=== PATIENT | male | born 1950 | race Caucasian/White ===

== ENCOUNTER 2017-11-29 16:01 | Outpatient (CLI) | payer MEDICARE, BC | END 2017-11-29 16:02 | disposition home or self-care (01) | LOC: BICRAD 16:01 | PROVIDERS: ATTEND Family Medicine | DX: J45.909 Unspecified asthma, uncomplicated (principal) | CPT/HCPCS: 71046 ==

== ENCOUNTER 2018-09-10 07:44 | Outpatient (CLI) | payer MEDICARE, BC ==
--- NOTE | 2018-09-10 09:18 | CT ---
LOW DOSE CT CHEST WITHOUT CONTRAST: DATE: 09/10/2018. PROVIDED CLINICAL HISTORY: Screening, history of smoking. FINDINGS: No comparisons. The heart, pericardium, and great vessels are suboptimally evaluated in the absence of IV contrast ma terial. Vascular calcification including coronary calcium is demonstrated. Left subclavian cardiac pacing device is noted. The heart, pericardium, and great vessels demonstrate an otherwise unremarka ble unenhanced CT appearance. There is no evidence for thoracic lymph node enlargement with limitations due to lack of IV contrast. The lungs are free of significant opacity. Areas of parenchymal scarring are seen within the left lo wer lobe. The airway appears patent and of normal caliber. No pleural fluid or pneumothorax evident. The visualized portions of the upper abdomen demonstrate no acute abnormality. The osseous structure s demonstrate no concerning lytic or blastic lesions. Postoperative changes involving multiple right -sided ribs are demonstrated. Multiple remote healed rib fractures are seen. Compression deformity which appears chronic involves T12 with near-complete loss of vertebral body height. IMPRESSION: 1. Lung RADS category 1 - negative. Annual screening recommended. 2. Chronic findings as above. POS: TPC
== END 2018-09-10 07:45 | disposition home or self-care (01) ==
LOC: CT 07:44
PROVIDERS: ATTEND Family Medicine
DX: F17.211 Nicotine dependence, cigarettes, in remission (principal); Z87.891 Personal history of nicotine dependence
CPT/HCPCS: G0297

== ENCOUNTER 2019-11-24 05:55 | Day surgery (SDC) | payer MEDICARE, BC ==
[2019-11-23 10:50] VITALS: BMI 30.2
[2019-11-24] MEDS ORDERED: PHENYLEPHRINE-NS 100 MCG/ML 10 ML SYRINGE ONE (09:24)
[2019-11-24] MEDS ORDERED: Lidocaine 1% PF 5 ML VIAL ONE (09:24)
[2019-11-24] MEDS ORDERED: PROPOFOL 200 MG/20 ML VIAL ONE (09:24)
--- NOTE | 2019-11-24 10:34 | OP ---
DATE OF PROCEDURE: 11/24/2019 [employer] SURGEON: None. PROCEDURE PERFORMED: Colonoscopy with snare polypectomy. INDICATION: 1. Personal history of colon polyps. 2. Last colonoscopy was 3 years ago, with seven adenomas and tubulovillous adenomas removed at that time. MEDICATIONS: See Anesthesia record. FINDINGS: After discussion of the risks, benefits, and alternatives of the procedure, informed consent was obtained and witnessed. Pre-endoscopic cardiopulmonary examination was satisfactory. Time-out was performed before sedation was achieved. Sedation was achieved with Anesthesia assistance in the endoscopy unit. Digital rectal exam was performed, which demonstrated external hemorrhoids. A Pentax adult colonoscope was inserted into the anus and passed forward to the cecum in the usual fashion. The cecal base was identified by the appendiceal orifice as well as the ileocecal valve. The terminal ileum was intubated and the ileal mucosa appeared normal. The colonoscope was slowly withdrawn in a gradual and circumferential manner with careful examination of the entire colonic mucosa. The quality of the prep was good. In the ascending colon, there are three tiny polyps each measuring 1 to 2 mm in diameter, these were all completely removed with cold snare and retrieved for pathology. In the descending colon, there were two tiny polyps measuring 1 to 2 mm in diameter, these were both completely removed with cold snare and retrieved for pathology. There was diverticulosis throughout the sigmoid colon. Retroflexion in the rectum demonstrates internal hemorrhoids. The remainder of the colon exam was normal. The colonoscope was completely withdrawn and the patient allowed to recover. The patient tolerated the procedure well. There were no immediate postprocedure complications. IMPRESSION: 1. Three tiny ascending colon polyps, completely removed with cold snare and retrieved for pathology. 2. Two tiny descending colon polyps, completely removed with cold snare and retrieved for pathology. 3. Sigmoid diverticulosis. 4. Internal and external hemorrhoids. RECOMMENDATIONS: 1. Follow up pathology results on the colon polyps. 2. Repeat surveillance colonoscopy interval to be determined based on pathology results. Job ID: [id number]
== END 2019-11-24 10:35 | disposition home or self-care (01) ==
LOC: SDC 05:55
PROVIDERS: ATTEND Internal Medicine
PROC: 0DBK8ZX Excision of Ascending Colon, Via Natural or Artificial Opening Endoscopic, Diagnostic (ICD-10-PCS; principal; 2019-11-24)
PROC: 0DBM8ZX Excision of Descending Colon, Via Natural or Artificial Opening Endoscopic, Diagnostic (ICD-10-PCS; 2019-11-24)
DX: Z12.11 Encounter for screening for malignant neoplasm of colon (principal); D12.2 Benign neoplasm of ascending colon; D12.4 Benign neoplasm of descending colon; K57.30 Diverticulosis of large intestine without perforation or abscess without bleeding; K64.4 Residual hemorrhoidal skin tags; K64.8 Other hemorrhoids; M19.90 Unspecified osteoarthritis, unspecified site; I50.9 Heart failure, unspecified; I25.10 Atherosclerotic heart disease of native coronary artery without angina pectoris; K21.9 Gastro-esophageal reflux disease without esophagitis; E78.00 Pure hypercholesterolemia, unspecified; Z86.010 Personal history of colon polyps; Z87.891 Personal history of nicotine dependence; Z79.02 Long term (current) use of antithrombotics/antiplatelets; Z79.82 Long term (current) use of aspirin; Z79.899 Other long term (current) drug therapy; Z95.5 Presence of coronary angioplasty implant and graft; Z95.810 Presence of automatic (implantable) cardiac defibrillator
CPT/HCPCS: 88305; J2704

== ENCOUNTER 2020-05-25 08:30 | Outpatient (CLI) | payer MEDICARE, BC | END 2020-05-25 08:31 | disposition home or self-care (01) | LOC: BICULT 08:30 | PROVIDERS: ATTEND Family Medicine | DX: R05 Cough (principal); J92.9 Pleural plaque without asbestos; R16.0 Hepatomegaly, not elsewhere classified; R39.9 Unspecified symptoms and signs involving the genitourinary system; K80.20 Calculus of gallbladder without cholecystitis without obstruction; K76.0 Fatty (change of) liver, not elsewhere classified | CPT/HCPCS: 71046; 76856; 93975 ==

== ENCOUNTER 2020-08-18 14:49 | Outpatient (CLI) | payer MEDICARE, BC | END 2020-08-18 14:50 | disposition home or self-care (01) | LOC: BICCT 14:49 | PROVIDERS: ATTEND Family Medicine | DX: R91.1 Solitary pulmonary nodule (principal) | CPT/HCPCS: 71260 ==

== ENCOUNTER 2020-11-01 13:54 | Outpatient (CLI) | payer MEDICARE, BC | END 2020-11-01 13:55 | disposition home or self-care (01) | LOC: TBSIIMAG 13:54 | PROVIDERS: ATTEND Neurological Surgery | DX: M48.56XA Collapsed vertebra, not elsewhere classified, lumbar region, initial encounter for fracture (principal); M48.54XA Collapsed vertebra, not elsewhere classified, thoracic region, initial encounter for fracture | CPT/HCPCS: 72100 ==

== ENCOUNTER 2021-01-02 11:17 | Outpatient (CLI) | payer MEDICARE, BC | END 2021-01-02 11:18 | disposition home or self-care (01) | LOC: BICRAD 11:17 | PROVIDERS: ATTEND Neurological Surgery | DX: S22.008A Other fracture of unspecified thoracic vertebra, initial encounter for closed fracture (principal); M54.50 Low back pain, unspecified; M47.816 Spondylosis without myelopathy or radiculopathy, lumbar region | CPT/HCPCS: 72100 ==

== ENCOUNTER 2021-04-03 09:35 | Outpatient (CLI) | payer MEDICARE, BC | END 2021-04-03 09:36 | disposition home or self-care (01) | LOC: CT 09:35 | PROVIDERS: ATTEND Family Medicine | DX: M47.817 Spondylosis without myelopathy or radiculopathy, lumbosacral region (principal); M12.551 Traumatic arthropathy, right hip; M47.816 Spondylosis without myelopathy or radiculopathy, lumbar region | CPT/HCPCS: 72131; 72192 ==

== ENCOUNTER 2021-07-26 13:23 | Outpatient (CLI) | payer MEDICARE, BC | END 2021-07-26 13:24 | disposition home or self-care (01) | LOC: MRI 13:23 | PROVIDERS: ATTEND Orthopaedic Surgery | DX: M47.816 Spondylosis without myelopathy or radiculopathy, lumbar region (principal); M48.061 Spinal stenosis, lumbar region without neurogenic claudication; M48.07 Spinal stenosis, lumbosacral region | CPT/HCPCS: 72148 ==

== ENCOUNTER 2021-08-31 15:08 | Outpatient (CLI) | payer MEDICARE, BC | END 2021-08-31 15:09 | disposition home or self-care (01) | LOC: BICRAD 15:08 | PROVIDERS: ATTEND Family Medicine | DX: M25.561 Pain in right knee (principal); M25.571 Pain in right ankle and joints of right foot; M25.551 Pain in right hip; M25.552 Pain in left hip; M25.562 Pain in left knee; M16.0 Bilateral primary osteoarthritis of hip; M17.0 Bilateral primary osteoarthritis of knee; M79.89 Other specified soft tissue disorders ==

== ENCOUNTER 2021-09-13 07:52 | Outpatient (CLI) | payer MEDICARE, BC | END 2021-09-13 07:53 | disposition home or self-care (01) | LOC: BICMAMMO 07:52 | PROVIDERS: ATTEND Family Medicine | DX: M80.00XA Age-related osteoporosis with current pathological fracture, unspecified site, initial encounter for fracture (principal); M85.88 Other specified disorders of bone density and structure, other site | CPT/HCPCS: 77080 ==

== ENCOUNTER 2022-03-08 10:08 | Outpatient (CLI) | payer MEDICARE, BC | END 2022-03-08 10:09 | disposition home or self-care (01) | LOC: BICRAD 10:08 | PROVIDERS: ATTEND Physician Assistant Medical | DX: R19.4 Change in bowel habit (principal); R15.9 Full incontinence of feces | CPT/HCPCS: 74018 ==

== ENCOUNTER 2022-04-20 08:41 | Outpatient (CLI) | payer MEDICARE, BC | END 2022-04-20 08:42 | disposition home or self-care (01) | LOC: MRI 08:41 | PROVIDERS: ATTEND Specialist | DX: M51.16 Intervertebral disc disorders with radiculopathy, lumbar region (principal); M47.26 Other spondylosis with radiculopathy, lumbar region; M47.817 Spondylosis without myelopathy or radiculopathy, lumbosacral region; M47.815 Spondylosis without myelopathy or radiculopathy, thoracolumbar region; Z98.890 Other specified postprocedural states; Z87.81 Personal history of (healed) traumatic fracture | CPT/HCPCS: 72148 ==

== ENCOUNTER 2022-10-05 11:30 | Inpatient (IN) | payer OTHER, MEDICARE, BC ==
[2022-10-05] MEDS ORDERED: Morphine 4 MG/ML VIAL ONE ×2 (12:29→13:49)
[2022-10-05 12:53] LABS: #Eosinphils 0.1 thou/uL (0.0-0.7); #Monocytes 0.2 thou/uL (0.11-0.59); #Neutrophils 3.5 thou/uL (1.40-6.50); %Basophils 0.2 % (0.0-1.0); %Eosinophils 1.4 % (0.0-10.0); %Lymphocytes 21.9 % (21.0-51.0); %Monocytes 3.7 % (0.0-10.0); %Neutrophils 72.4 % (42.0-75.0); Hematocrit 31.8 % (42.0-52.0); Hemoglobin 10.4 g/dL (14.0-18.0); Mean Corpuscular HGB CONC 32.7 g/dL (32.0-36.0); Mean Corpuscular Hemoglobin 32.8 pg (27.0-31.0); Mean Corpuscular Volume 100.3 fl (78.0-98.0); Mean Platelet Volume 10.6 fL (7.4-10.4); Platelet Count 155 10x3/uL (130-400); RBC Distribution Width 12.2 % (11.5-14.5); Red Blood Cell (RBC) Count 3.17 mill/uL (4.70-6.10); White Blood Cell (WBC) Count 4.9 10x3/uL (4.8-10.8)
[2022-10-05] MEDS ORDERED: Glucagon 1 MG/ML KIT IM PRN (13:10)
[2022-10-05] MEDS ORDERED: Ipratropium/Albuterol 3 ML NEB NEB PRN (13:10)
[2022-10-05] MEDS ORDERED: Dextrose 5% in Water 1,000 ML IV PRN (13:10)
[2022-10-05] MEDS ORDERED: Ondansetron ODT 4 MG TAB PO PRN (13:10)
[2022-10-05] MEDS ORDERED: Dextrose 50% Abboject 50 ML SYRINGE SLOW IVP PRN (13:10)
[2022-10-05] MEDS ORDERED: traMADol HCl 50 MG TAB ONE (13:46)
[2022-10-05 13:56] LABS: Albumin 4.1 g/dL (3.4-4.8)
[2022-10-05 13:58] LABS: Chloride 95 mmol/L (98-107); Potassium 4.2 mmol/L (3.5-5.1); Sodium 136 mmol/L (136-145)
[2022-10-05 13:59] LABS: Globulin 2.3 g/dL (2.4-3.5); Glucose 136 mg/dL (83-110); Protein, Total 6.4 g/dL (5.8-8.1)
[2022-10-05 14:00] LABS: Anion Gap 11 mmol/L (10-20); Carbon Dioxide 34 mmol/L (23-31)
[2022-10-05 14:01] LABS: Bilirubin, Total 0.4 mg/dL (0.2-1.2)
[2022-10-05 14:02] LABS: Alkaline Phosphatase 79 U/L (40-110); Calc. Creatinine Clearance 0 mL/min (70-130); Estimated GFR 93
[2022-10-05 14:03] LABS: BUN (Urea Nitrogen) 13 mg/dL (8.4-25.7)
[2022-10-05 14:04] LABS: AST (SGOT) 16 U/L (5-34); Magnesium 1.9 mg/dL (1.6-2.6); Phosphorus 3.2 mg/dL (2.3-4.7)
[2022-10-05 14:05] LABS: ALT (SGPT) 11 U/L (8-55)
[2022-10-05 14:42] VITALS: BMI 35.6
[2022-10-05 14:51] LABS: PTT 24.5 sec (22.9-36.1)
[2022-10-05] MEDS: Gabapentin 100 MG CAP PO SCH ×2 (15:22→21:13)
[2022-10-05] MEDS: Morphine 2 MG/ML VIAL SLOW IVP PRN ×2 (15:23→19:41)
[2022-10-05] MEDS: Acetaminophen 500 MG TAB PO SCH ×2 (15:24→19:46)
[2022-10-05] MEDS: traMADol HCl 50 MG TAB PO SCH ×2 (17:59→23:58)
[2022-10-05] MEDS: Famotidine 20 MG TAB PO SCH (21:13)
[2022-10-05] MEDS: traMADol HCl 50 MG TAB PO PRN (21:13)
[2022-10-06] MEDS: Acetaminophen 500 MG TAB PO SCH ×3 (01:21→08:25)
[2022-10-06] MEDS: Cyclobenzaprine 10 MG TAB PO PRN ×2 (01:22→08:24)
[2022-10-06] MEDS: Morphine 2 MG/ML VIAL SLOW IVP PRN ×3 (03:44→12:57)
[2022-10-06 05:40] LABS: #Eosinphils 0.1 thou/uL (0.0-0.7); #Monocytes 0.4 thou/uL (0.11-0.59); #Neutrophils 3.4 thou/uL (1.40-6.50); %Basophils 0.4 % (0.0-1.0); %Eosinophils 1.6 % (0.0-10.0); %Lymphocytes 22.8 % (21.0-51.0); %Monocytes 7.5 % (0.0-10.0); %Neutrophils 67.5 % (42.0-75.0); Hematocrit 31.3 % (42.0-52.0); Hemoglobin 10.1 g/dL (14.0-18.0); Mean Corpuscular HGB CONC 32.3 g/dL (32.0-36.0); Mean Corpuscular Hemoglobin 33.3 pg (27.0-31.0); Mean Corpuscular Volume 103.3 fl (78.0-98.0); Mean Platelet Volume 10.4 fL (7.4-10.4); Platelet Count 136 10x3/uL (130-400); RBC Distribution Width 12.5 % (11.5-14.5); Red Blood Cell (RBC) Count 3.03 mill/uL (4.70-6.10)
[2022-10-06] MEDS: traMADol HCl 50 MG TAB PO SCH ×3 (06:06→18:18)
[2022-10-06 06:34] LABS: Phosphorus 3.5 mg/dL (2.3-4.7)
[2022-10-06 06:36] LABS: Anion Gap 13 mmol/L (10-20); BUN (Urea Nitrogen) 16 mg/dL (8.4-25.7); Calc. Creatinine Clearance 122 mL/min (70-130); Calcium 9.9 mg/dL (7.8-10.44); Carbon Dioxide 32 mmol/L (23-31); Chloride 95 mmol/L (98-107); Estimated GFR 91; Glucose 126 mg/dL (83-110); Magnesium 1.9 mg/dL (1.6-2.6); Potassium 4.6 mmol/L (3.5-5.1); Sodium 135 mmol/L (136-145)
[2022-10-06] MEDS ORDERED: Acetaminophen/Codeine 30-300mg Tablet PO PRN ×2 (08:22)
[2022-10-06] MEDS: Gabapentin 100 MG CAP PO SCH ×3 (08:24→20:37)
[2022-10-06] MEDS: traMADol HCl 50 MG TAB PO PRN (08:24)
[2022-10-06] MEDS: Famotidine 20 MG TAB PO SCH ×2 (08:24→20:37)
[2022-10-06] MEDS ORDERED: CEFAZOLIN 2 GM in Sodium Chloride 0.9% 100 ML IVPB SCH (08:45)
[2022-10-06] MEDS ORDERED: Magnesium 2 GM/50 ML(in water) 2 GM in Premix Bag 1 BAG IVPB SCH (08:45)
[2022-10-06] MEDS: Bupropion 100 MG SR TAB PO SCH (09:00)
[2022-10-06] MEDS: Escitalopram Oxalate 20 mg Tablet PO SCH (09:45)
[2022-10-06] MEDS: Sacubitril 49 MG/Valsartan 51 MG TABLET PO SCH ×2 (09:45→20:36)
[2022-10-06] MEDS: Folic Acid 1 MG TAB PO SCH (09:45)
[2022-10-06] MEDS: tiZANidine HCl 4 MG TAB PO SCH ×4 (09:45→20:36)
[2022-10-06] MEDS: Cyanocobalamin (Vitamin B-12) 1,000 MCG TAB PO SCH (09:46)
[2022-10-06] MEDS: Acetaminophen/Codeine 30-300mg Tablet PO SCH (20:36)
[2022-10-06] MEDS: Atorvastatin Calcium 20 MG TAB PO SCH (20:37)
[2022-10-06] MEDS ORDERED: Simvastatin 40 MG TAB PO SCH (21:00)
[2022-10-07] MEDS: Acetaminophen/Codeine 30-300mg Tablet PO SCH ×4 (01:20→20:48)
[2022-10-07] MEDS: tiZANidine HCl 4 MG TAB PO SCH ×6 (01:20→20:55)
[2022-10-07] MEDS: Acetaminophen/Codeine 30-300mg Tablet PO PRN ×3 (01:23→17:57)
[2022-10-07 05:58] LABS: #Eosinphils 0.1 thou/uL (0.0-0.7); #Monocytes 0.4 thou/uL (0.11-0.59); #Neutrophils 2.9 thou/uL (1.40-6.50); %Basophils 0.4 % (0.0-1.0); %Eosinophils 1.5 % (0.0-10.0); %Lymphocytes 27.6 % (21.0-51.0); %Monocytes 8.7 % (0.0-10.0); %Neutrophils 61.6 % (42.0-75.0); Hemoglobin 9.2 g/dL (14.0-18.0); Mean Corpuscular HGB CONC 32.9 g/dL (32.0-36.0); Mean Corpuscular Hemoglobin 33.2 pg (27.0-31.0); Mean Corpuscular Volume 101.1 fl (78.0-98.0); Mean Platelet Volume 10.6 fL (7.4-10.4); Platelet Count 122 10x3/uL (130-400); RBC Distribution Width 12.3 % (11.5-14.5); Red Blood Cell (RBC) Count 2.77 mill/uL (4.70-6.10); White Blood Cell (WBC) Count 4.7 10x3/uL (4.8-10.8)
[2022-10-07 06:26] LABS: Anion Gap 11 mmol/L (10-20); BUN (Urea Nitrogen) 11 mg/dL (8.4-25.7); Calc. Creatinine Clearance 150 mL/min (70-130); Calcium 9.3 mg/dL (7.8-10.44); Carbon Dioxide 31 mmol/L (23-31); Chloride 96 mmol/L (98-107); Estimated GFR 97; Glucose 114 mg/dL (83-110); Magnesium 2.1 mg/dL (1.6-2.6); Phosphorus 2.4 mg/dL (2.3-4.7); Potassium 4.3 mmol/L (3.5-5.1); Sodium 134 mmol/L (136-145)
[2022-10-07] MEDS ORDERED: Dexmedetomidine 200 MCG/2 ML VIAL ONE (07:41)
[2022-10-07] MEDS ORDERED: fentaNYL PF 100 MCG/2 ML SYRINGE ONE (07:41)
[2022-10-07] MEDS ORDERED: Sodium Chloride 0.9% 0 ML ONE (07:50)
[2022-10-07] MEDS ORDERED: CEFAZOLIN 2 GM VIAL ONE (07:50)
[2022-10-07] MEDS ORDERED: Lidocaine 1% MPF 2 ML VIAL ONE (07:59)
[2022-10-07] MEDS ORDERED: Ondansetron HCl/PF 4 MG/2 ML Vial IVP PRN (08:21)
[2022-10-07] MEDS ORDERED: Promethazine HCl 25 MG/ML VIAL IM PRN (08:21)
[2022-10-07] MEDS ORDERED: PROPOFOL 200 MG/20 ML VIAL ONE (08:43)
[2022-10-07] MEDS ORDERED: Ondansetron PF 4 MG/2 ML Vial ONE (08:43)
[2022-10-07] MEDS ORDERED: PHENYLEPHRINE-NS 100 MCG/ML 10 ML SYRINGE ONE (08:43)
[2022-10-07] MEDS: Gabapentin 100 MG CAP PO SCH ×3 (09:00→20:49)
[2022-10-07] MEDS: Carvedilol 25 MG TAB PO SCH ×2 (09:00→20:46)
[2022-10-07] MEDS ORDERED: fentaNYL 50 mcg/mL 1 mL Vial ONE (10:23)
[2022-10-07] MEDS: Sacubitril 49 MG/Valsartan 51 MG TABLET PO SCH ×2 (13:05→20:48)
[2022-10-07] MEDS: Cyanocobalamin (Vitamin B-12) 1,000 MCG TAB PO SCH (13:05)
[2022-10-07] MEDS: Famotidine 20 MG TAB PO SCH ×2 (13:05→20:50)
[2022-10-07] MEDS: Folic Acid 1 MG TAB PO SCH (13:05)
[2022-10-07] MEDS: Escitalopram Oxalate 20 mg Tablet PO SCH (13:06)
[2022-10-07] MEDS: Bupropion 100 MG SR TAB PO SCH (13:08)
[2022-10-07] MEDS: Morphine 2 MG/ML VIAL SLOW IVP PRN (18:02)
[2022-10-07] MEDS: CEFAZOLIN 2 GM in Sodium Chloride 0.9% 100 ML IVPB SCH (18:13)
[2022-10-07] MEDS: Atorvastatin Calcium 20 MG TAB PO SCH (20:49)
[2022-10-08] MEDS: tiZANidine HCl 4 MG TAB PO SCH ×6 (00:06→20:29)
[2022-10-08] MEDS: CEFAZOLIN 2 GM in Sodium Chloride 0.9% 100 ML IVPB SCH (00:07)
[2022-10-08] MEDS: Acetaminophen/Codeine 30-300mg Tablet PO SCH ×4 (02:39→20:28)
[2022-10-08 08:02] LABS: #Monocytes 0.4 thou/uL (0.11-0.59); #Neutrophils 3.9 thou/uL (1.40-6.50); %Basophils 0.2 % (0.0-1.0); %Eosinophils 0.7 % (0.0-10.0); %Lymphocytes 20.1 % (21.0-51.0); %Monocytes 7.6 % (0.0-10.0); %Neutrophils 70.9 % (42.0-75.0); Hematocrit 24.7 % (42.0-52.0); Hemoglobin 7.8 g/dL (14.0-18.0); Mean Corpuscular HGB CONC 31.6 g/dL (32.0-36.0); Mean Corpuscular Hemoglobin 33.6 pg (27.0-31.0); Mean Corpuscular Volume 106.5 fl (78.0-98.0); Mean Platelet Volume 10.2 fL (7.4-10.4); Platelet Count 137 10x3/uL (130-400); RBC Distribution Width 12.5 % (11.5-14.5); Red Blood Cell (RBC) Count 2.32 mill/uL (4.70-6.10); White Blood Cell (WBC) Count 5.5 10x3/uL (4.8-10.8)
[2022-10-08 08:54] LABS: Anion Gap 13 mmol/L (10-20); BUN (Urea Nitrogen) 20 mg/dL (8.4-25.7); Calc. Creatinine Clearance 53 mL/min (70-130); Calcium 8.7 mg/dL (7.8-10.44); Carbon Dioxide 27 mmol/L (23-31); Chloride 96 mmol/L (98-107); Estimated GFR 35; Glucose 144 mg/dL (83-110); Magnesium 2.1 mg/dL (1.6-2.6); Potassium 4.7 mmol/L (3.5-5.1); Sodium 131 mmol/L (136-145)
[2022-10-08] MEDS: Folic Acid 1 MG TAB PO SCH (10:51)
[2022-10-08] MEDS: Cyanocobalamin (Vitamin B-12) 1,000 MCG TAB PO SCH (10:52)
[2022-10-08] MEDS: Famotidine 20 MG TAB PO SCH ×2 (10:52→20:28)
[2022-10-08] MEDS: Gabapentin 100 MG CAP PO SCH ×3 (10:52→20:28)
[2022-10-08] MEDS: Escitalopram Oxalate 20 mg Tablet PO SCH (10:53)
[2022-10-08] MEDS: Bupropion 100 MG SR TAB PO SCH (11:51)
[2022-10-08] MEDS: Carvedilol 25 MG TAB PO SCH ×2 (11:54→20:29)
[2022-10-08] MEDS: Sacubitril 49 MG/Valsartan 51 MG TABLET PO SCH ×2 (11:54→20:29)
[2022-10-08] MEDS: Atorvastatin Calcium 20 MG TAB PO SCH (20:28)
[2022-10-08] MEDS ORDERED: Sodium Chloride 0.9% 1,000 ML IV SCH (20:45)
[2022-10-08] MEDS: Sodium Chloride 0.9% 1,000 ML IV SCH (21:22)
[2022-10-08 23:32] LABS: #Eosinphils 0.1 thou/uL (0.0-0.7); #Monocytes 0.5 thou/uL (0.11-0.59); #Neutrophils 4.4 thou/uL (1.40-6.50); %Basophils 0.1 % (0.0-1.0); %Eosinophils 0.9 % (0.0-10.0); %Lymphocytes 26.8 % (21.0-51.0); %Monocytes 7.6 % (0.0-10.0); %Neutrophils 64.3 % (42.0-75.0); Hemoglobin 8.7 g/dL (14.0-18.0); Mean Corpuscular HGB CONC 32.2 g/dL (32.0-36.0); Mean Corpuscular Hemoglobin 33.3 pg (27.0-31.0); Mean Corpuscular Volume 103.4 fl (78.0-98.0); Mean Platelet Volume 10.8 fL (7.4-10.4); Platelet Count 143 10x3/uL (130-400); RBC Distribution Width 14.3 % (11.5-14.5); Red Blood Cell (RBC) Count 2.61 mill/uL (4.70-6.10); White Blood Cell (WBC) Count 6.9 10x3/uL (4.8-10.8)
[2022-10-08] MEDS ORDERED: Albumin 25% 25 GM/100 ML BOT IVPB SCH (23:45)
[2022-10-08 23:56] LABS: ALT (SGPT) 27 U/L (8-55); AST (SGOT) 70 U/L (5-34); Albumin 3.4 g/dL (3.4-4.8); Alkaline Phosphatase 94 U/L (40-110); Anion Gap 15 mmol/L (10-20); BUN (Urea Nitrogen) 29 mg/dL (8.4-25.7); Bilirubin, Total 0.9 mg/dL (0.2-1.2); Calc. Creatinine Clearance 43 mL/min (70-130); Calcium 8.8 mg/dL (7.8-10.44); Carbon Dioxide 26 mmol/L (23-31); Chloride 94 mmol/L (98-107); Estimated GFR 27; Globulin 2.7 g/dL (2.4-3.5); Glucose 142 mg/dL (83-110); Potassium 4.8 mmol/L (3.5-5.1); Protein, Total 6.1 g/dL (5.8-8.1); Sodium 130 mmol/L (136-145)
[2022-10-09] MEDS ORDERED: Sodium Chloride 0.9% 500 ML IV SCH (00:15)
[2022-10-09] MEDS: tiZANidine HCl 4 MG TAB PO SCH ×6 (00:24→20:39)
[2022-10-09] MEDS: Acetaminophen/Codeine 30-300mg Tablet PO SCH ×4 (01:30→20:39)
[2022-10-09] MEDS: Ondansetron PF 4 MG/2 ML Vial IVP PRN ×3 (04:34→20:38)
[2022-10-09 05:59] LABS: #Monocytes 0.5 thou/uL (0.11-0.59); %Basophils 0.2 % (0.0-1.0); %Eosinophils 0.7 % (0.0-10.0); %Lymphocytes 22.4 % (21.0-51.0); %Monocytes 7.7 % (0.0-10.0); %Neutrophils 68.7 % (42.0-75.0); Hematocrit 26.1 % (42.0-52.0); Hemoglobin 8.4 g/dL (14.0-18.0); Mean Corpuscular HGB CONC 32.2 g/dL (32.0-36.0); Mean Corpuscular Hemoglobin 33.1 pg (27.0-31.0); Mean Corpuscular Volume 102.8 fl (78.0-98.0); Mean Platelet Volume 10.7 fL (7.4-10.4); Platelet Count 145 10x3/uL (130-400); RBC Distribution Width 14.2 % (11.5-14.5); Red Blood Cell (RBC) Count 2.54 mill/uL (4.70-6.10); White Blood Cell (WBC) Count 5.9 10x3/uL (4.8-10.8)
[2022-10-09 06:19] LABS: Anion Gap 16 mmol/L (10-20); BUN (Urea Nitrogen) 33 mg/dL (8.4-25.7); Calc. Creatinine Clearance 46 mL/min (70-130); Calcium 8.8 mg/dL (7.8-10.44); Carbon Dioxide 24 mmol/L (23-31); Chloride 98 mmol/L (98-107); Estimated GFR 29; Glucose 177 mg/dL (83-110); Potassium 4.7 mmol/L (3.5-5.1); Sodium 133 mmol/L (136-145)
[2022-10-09] MEDS: Gabapentin 100 MG CAP PO SCH ×2 (08:22→15:21)
[2022-10-09] MEDS: Cyanocobalamin (Vitamin B-12) 1,000 MCG TAB PO SCH (08:22)
[2022-10-09] MEDS: Famotidine 20 MG TAB PO SCH (08:22)
[2022-10-09] MEDS: Bupropion 100 MG SR TAB PO SCH (08:22)
[2022-10-09] MEDS: Escitalopram Oxalate 20 mg Tablet PO SCH (08:22)
[2022-10-09] MEDS ORDERED: Aspirin 81 mg Enteric Coated Tablet PO SCH (09:00)
[2022-10-09] MEDS: Scopolamine 1.5 mg/72 hour Patch TD SCH (10:53)
[2022-10-09] MEDS: Sodium Chloride 0.9% 1,000 ML IV SCH (16:44)
[2022-10-09] MEDS: Atorvastatin Calcium 20 MG TAB PO SCH (20:39)
[2022-10-09] MEDS: Heparin 5,000 UNITS/ML VIAL SC SCH (21:24)
[2022-10-09] MEDS: Melatonin 3 MG TAB PO SCH (21:24)
[2022-10-10] MEDS: tiZANidine HCl 4 MG TAB PO SCH ×6 (00:04→20:34)
[2022-10-10] MEDS: Acetaminophen/Codeine 30-300mg Tablet PO SCH ×3 (01:32→12:20)
[2022-10-10 05:54] LABS: #Monocytes 0.4 thou/uL (0.11-0.59); %Basophils 0.2 % (0.0-1.0); %Eosinophils 0.2 % (0.0-10.0); %Lymphocytes 15.7 % (21.0-51.0); %Neutrophils 76.5 % (42.0-75.0); Hematocrit 26.3 % (42.0-52.0); Hemoglobin 8.5 g/dL (14.0-18.0); Mean Corpuscular HGB CONC 32.3 g/dL (32.0-36.0); Mean Corpuscular Hemoglobin 33.5 pg (27.0-31.0); Mean Corpuscular Volume 103.5 fl (78.0-98.0); Mean Platelet Volume 10.5 fL (7.4-10.4); Platelet Count 165 10x3/uL (130-400); Red Blood Cell (RBC) Count 2.54 mill/uL (4.70-6.10); White Blood Cell (WBC) Count 5.3 10x3/uL (4.8-10.8)
[2022-10-10 06:52] LABS: Anion Gap 15 mmol/L (10-20); BUN (Urea Nitrogen) 32 mg/dL (8.4-25.7); Calc. Creatinine Clearance 81 mL/min (70-130); Calcium 9.1 mg/dL (7.8-10.44); Carbon Dioxide 28 mmol/L (23-31); Chloride 97 mmol/L (98-107); Estimated GFR 59; Glucose 151 mg/dL (83-110); Magnesium 2.4 mg/dL (1.6-2.6); Phosphorus 2.3 mg/dL (2.3-4.7); Potassium 4.7 mmol/L (3.5-5.1); Sodium 135 mmol/L (136-145)
[2022-10-10] MEDS: Escitalopram Oxalate 20 mg Tablet PO SCH (08:08)
[2022-10-10] MEDS: Cyanocobalamin (Vitamin B-12) 1,000 MCG TAB PO SCH (08:08)
[2022-10-10] MEDS: Bupropion 100 MG SR TAB PO SCH (08:08)
[2022-10-10] MEDS: Folic Acid 1 MG TAB PO SCH (08:08)
[2022-10-10] MEDS: Heparin 5,000 UNITS/ML VIAL SC SCH ×2 (08:09→20:35)
[2022-10-10] MEDS: Senokot S 8.6-50 MG TAB PO SCH ×2 (08:58→20:34)
[2022-10-10] MEDS: Sacubitril 24MG/Valsartan 26 MG TAB PO SCH ×2 (08:58→20:34)
[2022-10-10] MEDS: Polyethylene Glycol 3350 17 GM Packet PO SCH (08:59)
[2022-10-10] MEDS: Ondansetron PF 4 MG/2 ML Vial IVP PRN (09:00)
[2022-10-10] MEDS ORDERED: Famotidine 20 MG TAB PO SCH ×2 (09:00)
[2022-10-10] MEDS: Sodium Chloride 0.9% 1,000 ML IV SCH (11:04)
[2022-10-10] MEDS: Acetaminophen 325 MG TAB PO SCH (16:08)
[2022-10-10] MEDS ORDERED: Carvedilol 6.25 MG TAB PO SCH (17:00)
[2022-10-10] MEDS ORDERED: HYDROCORTISONE 2.5% TOP PRN (18:48)
[2022-10-10] MEDS ORDERED: IVERMECTIN TOP PRN (18:50)
[2022-10-10] MEDS ORDERED: [UNRECOGNIZED DRUG - OTHER] TOP PRN (18:50)
[2022-10-10] MEDS: Melatonin 3 MG TAB PO SCH (20:34)
[2022-10-10] MEDS: Atorvastatin Calcium 20 MG TAB PO SCH (20:35)
[2022-10-11] MEDS: tiZANidine HCl 4 MG TAB PO SCH ×2 (01:15→06:14)
[2022-10-11] MEDS: Acetaminophen 325 MG TAB PO SCH ×5 (01:15→23:29)
[2022-10-11 06:56] LABS: Anion Gap 12 mmol/L (10-20); BUN (Urea Nitrogen) 32 mg/dL (8.4-25.7); Calc. Creatinine Clearance 109 mL/min (70-130); Carbon Dioxide 36 mmol/L (23-31); Chloride 99 mmol/L (98-107); Estimated GFR 83; Glucose 127 mg/dL (83-110); Potassium 3.9 mmol/L (3.5-5.1); Sodium 143 mmol/L (136-145)
[2022-10-11] MEDS ORDERED: Sodium Chloride 0.9% (PF) 10 ML VIAL FS PRN (08:30)
[2022-10-11] MEDS ORDERED: Pantoprazole 40 MG VIAL IVP SCH (09:00)
[2022-10-11] MEDS: Sacubitril 24MG/Valsartan 26 MG TAB PO SCH ×2 (09:40→20:25)
[2022-10-11] MEDS: tiZANidine HCl 4 MG TAB PO PRN (09:43)
[2022-10-11] MEDS: Carvedilol 6.25 MG TAB PO SCH ×2 (09:43→17:54)
[2022-10-11] MEDS: Senokot S 8.6-50 MG TAB PO SCH ×2 (09:44→20:26)
[2022-10-11] MEDS: Folic Acid 1 MG TAB PO SCH (09:44)
[2022-10-11] MEDS: Pantoprazole 40 MG VIAL IVP SCH (09:44)
[2022-10-11] MEDS: Escitalopram Oxalate 20 mg Tablet PO SCH (09:44)
[2022-10-11] MEDS: Cyanocobalamin (Vitamin B-12) 1,000 MCG TAB PO SCH (09:44)
[2022-10-11] MEDS: Polyethylene Glycol 3350 17 GM Packet PO SCH (09:44)
[2022-10-11] MEDS: Bupropion 100 MG SR TAB PO SCH (09:44)
[2022-10-11] MEDS: Apixaban 5 MG TAB PO SCH ×2 (09:44→20:26)
[2022-10-11] MEDS: Sodium Chloride 0.9% 1,000 ML IV SCH (10:50)
[2022-10-11] MEDS: Melatonin 3 MG TAB PO SCH (20:26)
[2022-10-11] MEDS: Atorvastatin Calcium 20 MG TAB PO SCH (20:26)
[2022-10-12] MEDS: tiZANidine HCl 4 MG TAB PO PRN (01:14)
[2022-10-12] MEDS: Sodium Chloride 0.9% 1,000 ML IV SCH (01:15)
[2022-10-12] MEDS: Acetaminophen 325 MG TAB PO SCH ×4 (05:42→23:06)
[2022-10-12] MEDS: Bupropion 100 MG SR TAB PO SCH (09:04)
[2022-10-12] MEDS: Pantoprazole 40 MG VIAL IVP SCH (09:04)
[2022-10-12] MEDS: Senokot S 8.6-50 MG TAB PO SCH ×2 (09:04→20:25)
[2022-10-12] MEDS: Polyethylene Glycol 3350 17 GM Packet PO SCH (09:04)
[2022-10-12] MEDS: Cyanocobalamin (Vitamin B-12) 1,000 MCG TAB PO SCH (09:05)
[2022-10-12] MEDS: Folic Acid 1 MG TAB PO SCH (09:05)
[2022-10-12] MEDS: Apixaban 5 MG TAB PO SCH ×2 (09:05→20:26)
[2022-10-12] MEDS: Carvedilol 6.25 MG TAB PO SCH ×2 (09:05→17:36)
[2022-10-12] MEDS: Sacubitril 24MG/Valsartan 26 MG TAB PO SCH ×2 (09:05→20:26)
[2022-10-12] MEDS: Escitalopram Oxalate 20 mg Tablet PO SCH (09:05)
[2022-10-12] MEDS ORDERED: Morphine 4 MG/ML VIAL ONE (10:33)
[2022-10-12] MEDS ORDERED: Morphine 4 MG/ML VIAL SLOW IVP SCH (10:45)
[2022-10-12] MEDS: Scopolamine 1.5 mg/72 hour Patch TD SCH (11:52)
[2022-10-12] MEDS ORDERED: Acetaminophen/Codeine 30-300mg Tablet PO SCH (12:00)
[2022-10-12] MEDS ORDERED: traMADol HCl 50 MG TAB PO PRN (14:20)
[2022-10-12] MEDS: Atorvastatin Calcium 20 MG TAB PO SCH (20:26)
[2022-10-12] MEDS: Melatonin 3 MG TAB PO SCH (20:26)
[2022-10-13] MEDS: Acetaminophen 325 MG TAB PO SCH ×3 (05:04→18:10)
[2022-10-13] MEDS: Senokot S 8.6-50 MG TAB PO SCH ×2 (09:56→20:58)
[2022-10-13] MEDS: Sacubitril 24MG/Valsartan 26 MG TAB PO SCH ×2 (09:56→20:57)
[2022-10-13] MEDS: Carvedilol 6.25 MG TAB PO SCH ×2 (09:56→18:12)
[2022-10-13] MEDS: Escitalopram Oxalate 20 mg Tablet PO SCH (09:56)
[2022-10-13] MEDS: Cyanocobalamin (Vitamin B-12) 1,000 MCG TAB PO SCH (09:57)
[2022-10-13] MEDS: Bupropion 100 MG SR TAB PO SCH (09:57)
[2022-10-13] MEDS: Folic Acid 1 MG TAB PO SCH (09:57)
[2022-10-13] MEDS: Polyethylene Glycol 3350 17 GM Packet PO SCH (09:57)
[2022-10-13] MEDS: Apixaban 5 MG TAB PO SCH ×2 (09:57→20:58)
[2022-10-13] MEDS: HYDROcodone/Acetaminophen 5/325 mg Tablet PO PRN ×2 (10:03→14:29)
[2022-10-13] MEDS: Pantoprazole 40 MG VIAL IVP SCH (10:09)
[2022-10-13 11:39] LABS: Hematocrit 29.4 % (42.0-52.0); Hemoglobin 9.1 g/dL (14.0-18.0)
[2022-10-13] MEDS: Ibuprofen 200 MG TAB PO SCH ×2 (12:48→18:10)
[2022-10-13] MEDS: Melatonin 3 MG TAB PO SCH (20:58)
[2022-10-13] MEDS: Atorvastatin Calcium 20 MG TAB PO SCH (20:59)
[2022-10-14] MEDS: Acetaminophen 325 MG TAB PO SCH ×3 (00:10→11:47)
[2022-10-14] MEDS: Ibuprofen 200 MG TAB PO SCH ×2 (02:06→10:21)
[2022-10-14 05:02] LABS: #Eosinphils 0.2 thou/uL (0.0-0.7); #Monocytes 0.4 thou/uL (0.11-0.59); #Neutrophils 2.9 thou/uL (1.40-6.50); %Basophils 0.4 % (0.0-1.0); %Eosinophils 3.4 % (0.0-10.0); %Lymphocytes 25.4 % (21.0-51.0); %Monocytes 7.9 % (0.0-10.0); %Neutrophils 62.5 % (42.0-75.0); Hematocrit 27.6 % (42.0-52.0); Hemoglobin 8.6 g/dL (14.0-18.0); Mean Corpuscular HGB CONC 31.2 g/dL (32.0-36.0); Mean Corpuscular Hemoglobin 33.3 pg (27.0-31.0); Mean Platelet Volume 10.9 fL (7.4-10.4); Platelet Count 215 10x3/uL (130-400); RBC Distribution Width 14.1 % (11.5-14.5); Red Blood Cell (RBC) Count 2.58 mill/uL (4.70-6.10); White Blood Cell (WBC) Count 4.7 10x3/uL (4.8-10.8)
[2022-10-14 05:24] LABS: Anion Gap 12 mmol/L (10-20); BUN (Urea Nitrogen) 27 mg/dL (8.4-25.7); Calc. Creatinine Clearance 105 mL/min (70-130); Calcium 9.8 mg/dL (7.8-10.44); Carbon Dioxide 36 mmol/L (23-31); Chloride 96 mmol/L (98-107); Estimated GFR 79; Glucose 124 mg/dL (83-110); Potassium 3.8 mmol/L (3.5-5.1); Sodium 140 mmol/L (136-145)
[2022-10-14] MEDS ORDERED: Naloxegol 12.5 MG TAB PO SCH (07:30)
[2022-10-14] MEDS: Polyethylene Glycol 3350 17 GM Packet PO SCH (08:02)
[2022-10-14] MEDS: Carvedilol 6.25 MG TAB PO SCH (08:02)
[2022-10-14] MEDS: Bupropion 100 MG SR TAB PO SCH (08:02)
[2022-10-14] MEDS: Folic Acid 1 MG TAB PO SCH (08:02)
[2022-10-14] MEDS: Apixaban 5 MG TAB PO SCH (08:03)
[2022-10-14] MEDS: Escitalopram Oxalate 20 mg Tablet PO SCH (08:03)
[2022-10-14] MEDS: Senokot S 8.6-50 MG TAB PO SCH (08:03)
[2022-10-14] MEDS: Sacubitril 24MG/Valsartan 26 MG TAB PO SCH (08:03)
[2022-10-14] MEDS: Cyanocobalamin (Vitamin B-12) 1,000 MCG TAB PO SCH (08:03)
[2022-10-14] MEDS ORDERED: Bisacodyl 10 MG SUPP PR SCH (08:53)
[2022-10-14] MEDS ORDERED: Bisacodyl 10 MG SUPP PR ONE (10:00)
[2022-10-14] MEDS: HYDROcodone/Acetaminophen 5/325 mg Tablet PO PRN (10:22)
[2022-10-14 16:21] VITALS: BP 136/76; TEMP 98.3
== END 2022-10-14 17:43 | DRG 480 ==
LOC: ERS 11:30 → SURG B 13:10
PROVIDERS: ADMIT Surgery; ATTEND Surgery
PROC: 0QS706Z Reposition Left Upper Femur with Intramedullary Internal Fixation Device, Open Approach (ICD-10-PCS; principal; 2022-10-07)
PROC: 30233N1 Transfusion of Nonautologous Red Blood Cells into Peripheral Vein, Percutaneous Approach (ICD-10-PCS; 2022-10-08)
DX: S72.142A Displaced intertrochanteric fracture of left femur, initial encounter for closed fracture (principal); T81.19XA Other postprocedural shock, initial encounter; I50.22 Chronic systolic (congestive) heart failure; K56.7 Ileus, unspecified; N17.9 Acute kidney failure, unspecified; I25.10 Atherosclerotic heart disease of native coronary artery without angina pectoris; I11.0 Hypertensive heart disease with heart failure; J44.9 Chronic obstructive pulmonary disease, unspecified; I73.9 Peripheral vascular disease, unspecified; Z60.2 Problems related to living alone; Y83.8 Other surgical procedures as the cause of abnormal reaction of the patient, or of later complication, without mention of misadventure at the time of the procedure; I95.9 Hypotension, unspecified; W01.0XXA Fall on same level from slipping, tripping and stumbling without subsequent striking against object, initial encounter; Y92.000 Kitchen of unspecified non-institutional (private) residence as the place of occurrence of the external cause; Z79.01 Long term (current) use of anticoagulants; Z95.0 Presence of cardiac pacemaker; Z95.5 Presence of coronary angioplasty implant and graft; Z95.810 Presence of automatic (implantable) cardiac defibrillator; Z79.899 Other long term (current) drug therapy; Z87.891 Personal history of nicotine dependence
CPT/HCPCS: 36415; 36416; 36430; 71045; 71046; 72170; 74018; 74019; 74022; 80048; 80053; 82533; 83735; 83880; 84100; 85014; 85018; 85025; 85610; 85730; 86850; 86900; 86901; 93005; 93306; 96374; 96376; 97139; C1713; C9113; J1642; J1644; J2270; J2272; J2405; J2704; J3010; J3475; J3490; J7030; J7050; P9016; P9047

== ENCOUNTER 2023-09-06 08:33 | Outpatient (CLI) | payer MEDICARE, BC | END 2023-09-06 08:34 | disposition home or self-care (01) | LOC: MRI 08:33 | PROVIDERS: ATTEND Family Medicine | DX: R29.898 Other symptoms and signs involving the musculoskeletal system (principal); M47.816 Spondylosis without myelopathy or radiculopathy, lumbar region; S32.029A Unspecified fracture of second lumbar vertebra, initial encounter for closed fracture; Z98.890 Other specified postprocedural states | CPT/HCPCS: 72148 ==

== ENCOUNTER 2023-10-01 21:45 | Inpatient (IN) | payer MEDICARE, BC ==
[2023-10-01 23:00] LABS: #Basophils Less than 0.03 10x3/uL (0.0-0.2); #Eosinphils Less than 0.03 10x3/uL (0.0-0.7); %Basophils 0.1 % (0.0-1.0); %Lymphocytes 9.1 % (21.0-51.0); %Monocytes 1.5 % (0.0-10.0); %Neutrophils 88.7 % (42.0-75.0); Hematocrit 38.5 % (42.0-52.0); Hemoglobin 12.4 g/dL (14.0-18.0); Mean Corpuscular HGB CONC 32.2 g/dL (32.0-36.0); Mean Corpuscular Hemoglobin 33.5 pg (27.0-31.0); Mean Corpuscular Volume 104.1 fL (78.0-98.0); Mean Platelet Volume 9.5 fL (7.4-10.4); Platelet Count 237 10x3/uL (130-400)
[2023-10-01 23:11] LABS: INR-International Normal Ratio 1.3; Prothrombin Time 15.8 sec (12.0-14.7)
[2023-10-01 23:12] LABS: PTT 36.9 sec (22.9-36.1)
[2023-10-01 23:16] LABS: ALT (SGPT) 51 U/L (8-55); AST (SGOT) 47 U/L (5-34); Albumin 2.6 g/dL (3.4-4.8); Alkaline Phosphatase 74 U/L (40-110); Anion Gap 13 mmol/L (10-20); BUN (Urea Nitrogen) 19 mg/dL (8.4-25.7); Bilirubin, Total 1.2 mg/dL (0.2-1.2); Calc. Creatinine Clearance 0 mL/min (70-130); Calcium 8.3 mg/dL (7.8-10.44); Carbon Dioxide 22 mmol/L (23-31); Chloride 103 mmol/L (98-107); Estimated GFR 82; Globulin 3.6 g/dL (2.4-3.5); Glucose 157 mg/dL (83-110); Lipase 6 U/L (8-78); Magnesium 2.2 mg/dL (1.6-2.6); Potassium 4.4 mmol/L (3.5-5.1); Protein, Total 6.2 g/dL (5.8-8.1); Sodium 134 mmol/L (136-145)
[2023-10-01 23:30] LABS: Troponin I 1.018 ng/mL (< 0.028)
[2023-10-02] MEDS ORDERED: Furosemide 40 MG (4 mL) VIAL ONE (00:13)
[2023-10-02 00:29] LABS: Troponin I 1.121 ng/mL (< 0.028)
[2023-10-02 01:20] LABS: Bacteria/HPF None Seen HPF (None Seen); Bilirubin Negative (Negative); Blood, Urine Negative (Negative); CAUTI Indications for Culture Dysuria,urgency,freq; Clarity Clear (Clear); Glucose, Urine (Dipstick) 50 mg/dL (Negative); Ketone, Urine 10 mg/dL (Negative); Leukocyte Negative Leu/uL (Negative); Nitrite Negative (Negative); Protein, Urine (Dipstick) Negative (Neg-Trace); RBC/HPF 0-3 HPF (0-3); Specific Gravity, Urine 1.011 (1.002-1.036); Squamous Epithelial 0-3 HPF (0-3); Urobilinogen Normal mg/dL (Less than 2); WBC/HPF 0-3 HPF (0-3)
[2023-10-02 01:21] LABS: Urine Culture Reflex No No
[2023-10-02] MEDS ORDERED: Acetaminophen 650 MG Suppository PR PRN (01:41)
[2023-10-02] MEDS ORDERED: Ondansetron PF 4 MG/2 ML Vial IVP PRN (01:41)
[2023-10-02] MEDS ORDERED: Ondansetron ODT 4 MG TAB PO PRN (01:41)
[2023-10-02] MEDS ORDERED: Acetaminophen 325 MG TAB PO PRN (01:41)
[2023-10-02] MEDS ORDERED: Ipratropium/Albuterol 3 ML NEB NEB PRN (01:43)
[2023-10-02] MEDS: Ipratropium/Albuterol 3 ML NEB NEB SCH (02:21)
[2023-10-02 02:47] VITALS: BMI 26.4
[2023-10-02] MEDS ORDERED: hydrALAZINE 20 MG/ML VIAL SLOW IVP PRN (03:49)
[2023-10-02 04:49] LABS: #Basophils Less than 0.03 10x3/uL (0.0-0.2); #Eosinphils Less than 0.03 10x3/uL (0.0-0.7); %Lymphocytes 15.7 % (21.0-51.0); %Monocytes 1.4 % (0.0-10.0); %Neutrophils 82.2 % (42.0-75.0); Hematocrit 37.8 % (42.0-52.0); Hemoglobin 12.5 g/dL (14.0-18.0); Mean Corpuscular HGB CONC 33.1 g/dL (32.0-36.0); Mean Corpuscular Hemoglobin 33.9 pg (27.0-31.0); Mean Corpuscular Volume 102.4 fL (78.0-98.0); Mean Platelet Volume 9.6 fL (7.4-10.4); Platelet Count 220 10x3/uL (130-400); RBC Distribution Width 15.9 % (11.5-14.5); Red Blood Cell (RBC) Count 3.69 mill/uL (4.70-6.10)
[2023-10-02 05:11] LABS: Anion Gap 14 mmol/L (10-20); BUN (Urea Nitrogen) 21 mg/dL (8.4-25.7); Calc. Creatinine Clearance 91 mL/min (70-130); Calcium 8.2 mg/dL (7.8-10.44); Carbon Dioxide 23 mmol/L (23-31); Chloride 103 mmol/L (98-107); Estimated GFR 82; Glucose 188 mg/dL (83-110); Sodium 136 mmol/L (136-145)
[2023-10-02 05:20] LABS: Troponin I 1.174 ng/mL (< 0.028)
[2023-10-02 07:37] LABS: Troponin I 1.063 ng/mL (< 0.028)
[2023-10-02] MEDS: Furosemide 40 MG (4 mL) VIAL SLOW IVP SCH (08:35)
[2023-10-02] MEDS: Pantoprazole 40 MG VIAL IVP SCH (08:35)
[2023-10-02] MEDS: Apixaban 5 MG TAB PO SCH (08:35)
[2023-10-02] MEDS ORDERED: Melatonin 3 MG TAB PO PRN (08:50)
[2023-10-02] MEDS ORDERED: Enoxaparin 40 MG (0.4 mL) SYRINGE SC SCH (09:00)
[2023-10-02] MEDS: Amiodarone 200 MG TAB PO SCH (10:05)
[2023-10-02] MEDS: Folic Acid 1 MG TAB PO SCH (10:05)
[2023-10-02] MEDS: Escitalopram Oxalate 20 mg Tablet PO SCH (10:05)
[2023-10-02] MEDS: Cyanocobalamin (Vitamin B-12) 1,000 MCG TAB PO SCH (10:05)
[2023-10-02] MEDS: Clopidogrel Bisulfate 75 MG TAB PO SCH (10:05)
[2023-10-02] MEDS: Gabapentin 100 MG CAP PO SCH ×2 (10:06→20:41)
[2023-10-02] MEDS: Furosemide 20 MG (2 mL) VIAL SLOW IVP SCH (13:34)
[2023-10-02] MEDS: buPROPion 75 MG TAB PO SCH (13:34)
[2023-10-02] MEDS ORDERED: Iopamidol-370 76% 500 ML MDV (1 ML CHARGE) ONE (15:37)
[2023-10-02] MEDS: Tamsulosin HCl 0.4 MG CAP PO SCH (20:40)
[2023-10-02] MEDS: Atorvastatin Calcium 40 MG TAB PO SCH (20:41)
[2023-10-03 04:15] LABS: #Basophils Less than 0.03 10x3/uL (0.0-0.2); #Eosinphils Less than 0.03 10x3/uL (0.0-0.7); %Basophils 0.1 % (0.0-1.0); %Lymphocytes 12.1 % (21.0-51.0); %Monocytes 6.2 % (0.0-10.0); %Neutrophils 81.3 % (42.0-75.0); Hematocrit 36.8 % (42.0-52.0); Hemoglobin 11.8 g/dL (14.0-18.0); Mean Corpuscular HGB CONC 32.1 g/dL (32.0-36.0); Mean Corpuscular Hemoglobin 33.1 pg (27.0-31.0); Mean Corpuscular Volume 103.1 fL (78.0-98.0); Mean Platelet Volume 9.8 fL (7.4-10.4); Platelet Count 241 10x3/uL (130-400); RBC Distribution Width 16.2 % (11.5-14.5); Red Blood Cell (RBC) Count 3.57 mill/uL (4.70-6.10)
[2023-10-03 04:37] LABS: Anion Gap 11 mmol/L (10-20); BUN (Urea Nitrogen) 34 mg/dL (8.4-25.7); Calc. Creatinine Clearance 81 mL/min (70-130); Calcium 8.4 mg/dL (7.8-10.44); Carbon Dioxide 23 mmol/L (23-31); Chloride 107 mmol/L (98-107); Estimated GFR 72; Glucose 150 mg/dL (83-110); Magnesium 2.6 mg/dL (1.6-2.6); Sodium 137 mmol/L (136-145)
[2023-10-03] MEDS: Empagliflozin 25 MG TAB PO SCH (08:59)
[2023-10-03] MEDS: Carvedilol 3.125 MG TAB PO SCH (17:53)
[2023-10-04 04:51] LABS: Anion Gap 13 mmol/L (10-20); BUN (Urea Nitrogen) 31 mg/dL (8.4-25.7); Calc. Creatinine Clearance 101 mL/min (70-130); Carbon Dioxide 27 mmol/L (23-31); Chloride 104 mmol/L (98-107); Estimated GFR 91; Glucose 92 mg/dL (83-110); Magnesium 2.7 mg/dL (1.6-2.6); Potassium 4.5 mmol/L (3.5-5.1); Sodium 139 mmol/L (136-145)
[2023-10-04] MEDS: Sacubitril 24MG/Valsartan 26 MG TAB PO SCH (09:05)
[2023-10-04] MEDS: Pantoprazole DR 40 MG TAB PO SCH (09:06)
[2023-10-04] MEDS: predniSONE 20 MG TAB PO SCH (09:10)
[2023-10-04] MEDS: guaiFENesin/DM ER PO SCH (09:10)
[2023-10-04] MEDS: Amiodarone 200 MG TAB PO SCH (20:17)
[2023-10-05 04:22] LABS: #Basophils Less than 0.03 10x3/uL (0.0-0.2); #Eosinphils Less than 0.03 10x3/uL (0.0-0.7); %Monocytes 6.3 % (0.0-10.0); %Neutrophils 76.2 % (42.0-75.0); Hematocrit 36.2 % (42.0-52.0); Hemoglobin 11.7 g/dL (14.0-18.0); Mean Corpuscular HGB CONC 32.3 g/dL (32.0-36.0); Mean Corpuscular Hemoglobin 33.6 pg (27.0-31.0); Mean Platelet Volume 9.8 fL (7.4-10.4); Platelet Count 257 10x3/uL (130-400); RBC Distribution Width 15.9 % (11.5-14.5); Red Blood Cell (RBC) Count 3.48 mill/uL (4.70-6.10)
[2023-10-05 04:53] LABS: Anion Gap 11 mmol/L (10-20); BUN (Urea Nitrogen) 27 mg/dL (8.4-25.7); Calc. Creatinine Clearance 100 mL/min (70-130); Calcium 9.1 mg/dL (7.8-10.44); Carbon Dioxide 25 mmol/L (23-31); Chloride 103 mmol/L (98-107); Estimated GFR 91; Glucose 112 mg/dL (83-110); Magnesium 2.6 mg/dL (1.6-2.6); Potassium 3.8 mmol/L (3.5-5.1); Sodium 135 mmol/L (136-145)
[2023-10-05] MEDS: Furosemide 20 MG TAB PO SCH (09:19)
[2023-10-05] MEDS: Cefdinir 300 MG CAP PO SCH (09:19)
[2023-10-05] MEDS: Amiodarone 200 MG TAB PO SCH (09:20)
[2023-10-06 05:01] LABS: #Basophils Less than 0.03 10x3/uL (0.0-0.2); #Eosinphils Less than 0.03 10x3/uL (0.0-0.7); %Eosinophils 0.2 % (0.0-10.0); %Monocytes 6.1 % (0.0-10.0); %Neutrophils 73.2 % (42.0-75.0); Hemoglobin 12.2 g/dL (14.0-18.0); Mean Corpuscular HGB CONC 32.1 g/dL (32.0-36.0); Mean Corpuscular Hemoglobin 32.9 pg (27.0-31.0); Mean Corpuscular Volume 102.4 fL (78.0-98.0); Platelet Count 252 10x3/uL (130-400); RBC Distribution Width 15.6 % (11.5-14.5); Red Blood Cell (RBC) Count 3.71 mill/uL (4.70-6.10)
[2023-10-06 05:17] LABS: Anion Gap 13 mmol/L (10-20); BUN (Urea Nitrogen) 23 mg/dL (8.4-25.7); Calc. Creatinine Clearance 109 mL/min (70-130); Carbon Dioxide 25 mmol/L (23-31); Chloride 105 mmol/L (98-107); Estimated GFR 93; Glucose 101 mg/dL (83-110); Potassium 4.4 mmol/L (3.5-5.1); Sodium 139 mmol/L (136-145)
[2023-10-06] MEDS: Spironolactone 25 MG TAB PO SCH (09:06)
[2023-10-06] MEDS: Furosemide 20 MG TAB PO SCH (09:07)
[2023-10-07 05:14] LABS: #Basophils Less than 0.03 10x3/uL (0.0-0.2); #Eosinphils Less than 0.03 10x3/uL (0.0-0.7); %Eosinophils 0.2 % (0.0-10.0); %Lymphocytes 19.1 % (21.0-51.0); %Monocytes 6.4 % (0.0-10.0); %Neutrophils 73.5 % (42.0-75.0); Hematocrit 37.7 % (42.0-52.0); Mean Corpuscular HGB CONC 31.8 g/dL (32.0-36.0); Mean Corpuscular Hemoglobin 33.3 pg (27.0-31.0); Mean Corpuscular Volume 104.7 fL (78.0-98.0); Mean Platelet Volume 9.9 fL (7.4-10.4); Platelet Count 264 10x3/uL (130-400); RBC Distribution Width 15.6 % (11.5-14.5)
[2023-10-07 06:15] LABS: Chloride 105 mmol/L (98-107); Potassium 4.1 mmol/L (3.5-5.1); Sodium 138 mmol/L (136-145)
[2023-10-07 07:10] LABS: Anion Gap 11 mmol/L (10-20); BUN (Urea Nitrogen) 22 mg/dL (8.4-25.7); Calc. Creatinine Clearance 109 mL/min (70-130); Calcium 9.2 mg/dL (7.8-10.44); Carbon Dioxide 27 mmol/L (23-31); Estimated GFR 93; Glucose 95 mg/dL (83-110)
[2023-10-07 11:26] VITALS: BP 111/60; TEMP 97.8
[2023-10-08] MEDS ORDERED: Amiodarone 200 MG TAB PO SCH (09:00)
== END 2023-10-07 12:12 | disposition home health service (06) | DRG 280 ==
LOC: ERS 21:45 → IMCU/EMU 10-02 00:29 → 2NO 10-04 17:32
PROVIDERS: ADMIT Student in an Organized Health Care Education/Training Program; ATTEND Family Medicine
PROC: 5A09357 Assistance with Respiratory Ventilation, Less than 24 Consecutive Hours, Continuous Positive Airway Pressure (ICD-10-PCS; principal; 2023-10-02)
DX: I11.0 Hypertensive heart disease with heart failure (principal); I50.23 Acute on chronic systolic (congestive) heart failure; I21.A1 Myocardial infarction type 2; J96.21 Acute and chronic respiratory failure with hypoxia; J44.1 Chronic obstructive pulmonary disease with (acute) exacerbation; I25.10 Atherosclerotic heart disease of native coronary artery without angina pectoris; I73.9 Peripheral vascular disease, unspecified; Z66 Do not resuscitate; R29.6 Repeated falls; N40.0 Benign prostatic hyperplasia without lower urinary tract symptoms; D53.9 Nutritional anemia, unspecified; I25.5 Ischemic cardiomyopathy; I48.0 Paroxysmal atrial fibrillation; G47.33 Obstructive sleep apnea (adult) (pediatric); R26.9 Unspecified abnormalities of gait and mobility; Z99.81 Dependence on supplemental oxygen; Z95.810 Presence of automatic (implantable) cardiac defibrillator; Z95.5 Presence of coronary angioplasty implant and graft; Z79.899 Other long term (current) drug therapy; Z79.02 Long term (current) use of antithrombotics/antiplatelets; Z79.01 Long term (current) use of anticoagulants; Z87.891 Personal history of nicotine dependence
CPT/HCPCS: 36415; 36416; 71045; 71275; 80048; 80053; 81001; 83605; 83690; 83735; 83880; 84443; 84484; 85025; 85610; 85730; 87077; 87086; 87149; 93005; 93306; 94640; 94660; 94760; 96374; J1940; J2470; J7512; J7620; Q9967

== ENCOUNTER 2024-03-28 17:59 | Inpatient (IN) | payer MEDICARE, BC ==
[2024-03-28 18:18] LABS: #Basophils Less than 0.03 10x3/uL (0.0-0.2); %Basophils 0.2 % (0.0-1.0); %Eosinophils 0.3 % (0.0-10.0); %Lymphocytes 14.6 % (21.0-51.0); %Monocytes 7.3 % (0.0-10.0); %Neutrophils 76.8 % (42.0-75.0); Hematocrit 23.6 % (42.0-52.0); Hemoglobin 7.5 g/dL (14.0-18.0); Mean Corpuscular HGB CONC 31.8 g/dL (32.0-36.0); Mean Corpuscular Hemoglobin 31.5 pg (27.0-31.0); Mean Corpuscular Volume 99.2 fL (78.0-98.0); Mean Platelet Volume 10.1 fL (7.4-10.4); Platelet Count 411 10x3/uL (130-400); RBC Distribution Width 16.4 % (11.5-14.5); Red Blood Cell (RBC) Count 2.38 mill/uL (4.70-6.10)
[2024-03-28] MEDS ORDERED: Piperacillin/Tazobactam 4.5 GM VIAL ONE (18:24)
[2024-03-28] MEDS ORDERED: Vancomycin (BATCH) 2 GM/500 ML BAG ONE (18:25)
[2024-03-28] MEDS ORDERED: Vancomycin 1 GM/200 ML (FROZEN) BAG ONE (18:25)
[2024-03-28] MEDS ORDERED: Sodium Chloride 0.9% 100 ML ONE (18:25)
[2024-03-28 18:34] LABS: Lipase 9 U/L (8-78); Magnesium 2.7 mg/dL (1.6-2.6)
[2024-03-28 18:35] LABS: Acetaminophen Less than 10 mcg/mL (Less than 10); Alcohol Less than 10.0 mg/dL (Less than 10); Salicylate Less than 8.0 mg/dL (Less than 8.0)
[2024-03-28 18:38] LABS: INR-International Normal Ratio 2.2; Prothrombin Time 24.5 sec (12.0-14.7)
[2024-03-28] MEDS ORDERED: NOREPINEPHRINE 8 MG/250 ML-D5W 250 ML ONE ×2 (18:38→23:57)
[2024-03-28 18:39] LABS: Analyzer IN Cardio ER; Base Excess -0.1 mEq/L (-2.0 to +3.0); Calcium, Ionized (venous) 0.92 mmol/L (1.16-1.32); Chloride (VBG) 99 mmol/L (98-106); Hematocrit-VBG 24 % (42.0-52.0); Hemoglobin (Hb) 8.1 g/dL (12.6-17.4); Potassium (VBG) 5.35 mmol/L (3.70-5.30); Sodium 131 mmol/L (133-146); pH (venous) 7.439 (7.32-7.43)
[2024-03-28 18:40] LABS: Troponin I 0.044 ng/mL (< 0.028)
[2024-03-28 19:21] LABS: ALT (SGPT) 56 U/L (8-55); AST (SGOT) 112 U/L (5-34); Albumin 1.7 g/dL (3.4-4.8); Alkaline Phosphatase 129 U/L (40-110); Anion Gap 15 mmol/L (10-20); BUN (Urea Nitrogen) 41 mg/dL (8.4-25.7); Calc. Creatinine Clearance 0 mL/min (70-130); Calcium 7.3 mg/dL (7.8-10.44); Carbon Dioxide 22 mmol/L (23-31); Chloride 103 mmol/L (98-107); Estimated GFR 22; Globulin 3.1 g/dL (2.4-3.5); Glucose 94 mg/dL (83-110); Potassium 5.1 mmol/L (3.5-5.1); Protein, Total 4.8 g/dL (5.8-8.1); Sodium 135 mmol/L (136-145)
[2024-03-28] MEDS ORDERED: Acetaminophen 325 MG Suppository ONE (19:44)
[2024-03-28] MEDS ORDERED: Vasopressin 20 UNITS/ML VIAL ONE ×2 (21:35→21:36)
[2024-03-28] MEDS ORDERED: Hydrocortisone Sod Succ/PF 100 mg/2 ml Vial ONE (22:37)
[2024-03-29 00:21] LABS: Troponin I 0.043 ng/mL (< 0.028)
[2024-03-29 00:26] LABS: Bacteria/HPF 3+ HPF (None Seen); Bilirubin Negative (Negative); Blood, Urine Negative (Negative); CAUTI Indications for Culture Fever or rigors; Clarity Extra Turbid (Clear); Glucose, Urine (Dipstick) Normal (Negative); Ketone, Urine Negative (Negative); Leukocyte Negative Leu/uL (Negative); Nitrite Negative (Negative); Protein, Urine (Dipstick) 20 mg/dL (Neg-Trace); RBC/HPF None Seen HPF (0-3); Specific Gravity, Urine 1.019 (1.002-1.036); Squamous Epithelial None Seen HPF (0-3)
[2024-03-29 00:30] LABS: Urine Culture Reflex No No
[2024-03-29 00:36] LABS: Amphetamine Not Detected (NotDetected); Barbiturates Screen Not Detected (NotDetected); Benzodiazepine Screen Detected (NotDetected); Cocaine Metabolite Screen Not Detected (NotDetected); Methadone Not Detected (NotDetected); Methamphetamine Not Detected (NotDetected); Opiate Screen Detected (NotDetected); Oxycodone Screen Detected (NotDetected); Phencyclidine (PCP) Not Detected (NotDetected); THC/Cannabinoid Screen Not Detected (NotDetected); Tricyclic Screen Not Detected (NotDetected)
[2024-03-29] MEDS ORDERED: Ipratropium/Albuterol 3 ML NEB NEB PRN (01:04)
[2024-03-29] MEDS ORDERED: Phenylephrine 40 MG/NS 250 ML 250 ML IVPB PRN (01:04)
[2024-03-29] MEDS ORDERED: Acetaminophen 650 MG Suppository PR PRN (01:04)
[2024-03-29] MEDS ORDERED: Senokot S 8.6-50 MG TAB PO PRN (01:12)
[2024-03-29] MEDS ORDERED: Acetaminophen 650 MG/20.3 ML UDCUP PO PRN (01:12)
[2024-03-29] MEDS ORDERED: Vasopressin In 0.9 % NaCl 40 UNIT in Premix 1 BAG IV PRN (01:16)
[2024-03-29] MEDS ORDERED: Dextrose 50% Abboject 50 ML SYRINGE SLOW IVP PRN (01:49)
[2024-03-29] MEDS ORDERED: Glucagon 1 MG/ML KIT IM PRN (01:49)
[2024-03-29] MEDS ORDERED: Insulin Lispro 100 UNIT/ML 10 ML VIAL SC PRN ×2 (01:49)
[2024-03-29] MEDS ORDERED: Dextrose 5% in Water 1,000 ML IV PRN (01:49)
[2024-03-29] MEDS: Cefepime 1 GM in Sodium Chloride 0.9% 100 ML IVPB SCH (02:02)
[2024-03-29] MEDS: metroNIDAZOLE 500 MG in Premix 1 BAG IVPB SCH (02:02)
[2024-03-29] MEDS: Albumin 25% 25 GM (100 mL) BOT IVPB SCH (02:02)
[2024-03-29] MEDS: Pantoprazole 40 MG VIAL IVP SCH ×2 (02:03→08:42)
[2024-03-29] MEDS: Sodium Bicarbonate 150 MEQ in Dextrose 5% in Water 1,000 ML IV SCH (02:26)
[2024-03-29] MEDS: DOBUTamine 500 mg/250 ml 250 ML IVPB SCH (02:37)
[2024-03-29 02:46] VITALS: BMI 26.9
[2024-03-29] MEDS ORDERED: Vancomycin Dose by Levels Sliding Scale (Wt 71-99) FS SCH (03:00)
[2024-03-29 04:36] LABS: INR-International Normal Ratio 2.6; PTT 50.6 sec (22.9-36.1); Prothrombin Time 28.1 sec (12.0-14.7)
[2024-03-29 04:40] LABS: Lactic Acid 0.99 mmol/L (0.5-2.2)
[2024-03-29 04:51] LABS: Magnesium 2.6 mg/dL (1.6-2.6); Phosphorus 5.3 mg/dL (2.3-4.7)
[2024-03-29] MEDS: Hydrocortisone Sod Succ/PF 100 mg/2 ml Vial IVP SCH (05:25)
[2024-03-29] MEDS: NOREPINEPHRINE 8 MG/250 ML-D5W 250 ML IVPB PRN (05:25)
[2024-03-29] MEDS: Ipratropium/Albuterol 3 ML NEB NEB SCH (07:19)
[2024-03-29] MEDS ORDERED: Vancomycin 1 GM in Premix 1 BAG IVPB SCH (09:00)
[2024-03-29] MEDS: Morphine 2 MG/ML VIAL SLOW IVP PRN (10:32)
[2024-03-29] MEDS: Lorazepam 2 MG/ML VIAL SLOW IVP PRN ×2 (12:27→17:39)
[2024-03-29] MEDS: Scopolamine 1 mg/72 hour Patch TD SCH (16:04)
[2024-03-29] MEDS: Glycopyrrolate 0.4 MG/ 2 ML VIAL SLOW IVP PRN (21:38)
[2024-03-30] MEDS: Morphine 2 MG/ML VIAL SLOW IVP PRN (12:06)
[2024-03-30 13:04] VITALS: BMI 26.9
[2024-03-30] MEDS: Lorazepam 2 MG/ML VIAL SLOW IVP SCH (23:45)
[2024-03-31 08:15] VITALS: BP 65/40; TEMP 99
[2024-03-31] MEDS: Scopolamine 1 mg/72 hour Patch TOP SCH (12:10)
== END 2024-03-31 14:19 | disposition expired | DRG 871 ==
LOC: ERS 17:59 → CCU 23:44 → T4-A 03-29 15:48
PROVIDERS: ADMIT Internal Medicine; ATTEND Internal Medicine
PROC: 30233N1 Transfusion of Nonautologous Red Blood Cells into Peripheral Vein, Percutaneous Approach (ICD-10-PCS; principal; 2024-03-28)
PROC: 3E03329 Introduction of Other Anti-infective into Peripheral Vein, Percutaneous Approach (ICD-10-PCS; 2024-03-28)
PROC: 3E033XZ Introduction of Vasopressor into Peripheral Vein, Percutaneous Approach (ICD-10-PCS; 2024-03-28)
PROC: 30233J1 Transfusion of Nonautologous Serum Albumin into Peripheral Vein, Percutaneous Approach (ICD-10-PCS; 2024-03-28)
PROC: 5A09357 Assistance with Respiratory Ventilation, Less than 24 Consecutive Hours, Continuous Positive Airway Pressure (ICD-10-PCS; 2024-03-29)
DX: A41.9 Sepsis, unspecified organism (principal); I50.23 Acute on chronic systolic (congestive) heart failure; J96.21 Acute and chronic respiratory failure with hypoxia; R65.21 Severe sepsis with septic shock; E87.20 Acidosis, unspecified; I13.0 Hypertensive heart and chronic kidney disease with heart failure and stage 1 through stage 4 chronic kidney disease, or unspecified chronic kidney disease; N17.9 Acute kidney failure, unspecified; N39.0 Urinary tract infection, site not specified; Z66 Do not resuscitate; Z51.5 Encounter for palliative care; I25.10 Atherosclerotic heart disease of native coronary artery without angina pectoris; J44.9 Chronic obstructive pulmonary disease, unspecified; I48.0 Paroxysmal atrial fibrillation; G47.33 Obstructive sleep apnea (adult) (pediatric); S81.802A Unspecified open wound, left lower leg, initial encounter; N18.2 Chronic kidney disease, stage 2 (mild); D63.1 Anemia in chronic kidney disease; I73.9 Peripheral vascular disease, unspecified; N40.0 Benign prostatic hyperplasia without lower urinary tract symptoms; F41.9 Anxiety disorder, unspecified; G89.29 Other chronic pain; Z98.890 Other specified postprocedural states; Z87.81 Personal history of (healed) traumatic fracture; R74.01 Elevation of levels of liver transaminase levels
CPT/HCPCS: 36415; 36430; 36556; 36620; 51702; 71045; 76705; 76770; 80048; 80053; 80306; 80307; 81001; 82805; 83605; 83690; 83735; 83880; 84100; 84443; 84484; 85025; 85610; 85730; 86141; 86850; 86900; 86901; 87040; 87086; 93005; 94640; 94660; 96365; 96366; 96367; 96368; 96375; 97139; 99292; J0692; J1250; J1720; J2060; J2272; J2470; J2543; J3370; J7070; J7620; P9016; P9047